=== PATIENT | female | born 1955 | race African-American/Black ===

== ENCOUNTER 2020-09-30 08:13 | Outpatient (CLI) | payer OTHER, SELFPAY ==
--- NOTE | ~2020-09-30 | MM_ITS ---
EXAMINATION: MM screening jacque BI w melanie HISTORY: Screening TECHNIQUE: Craniocaudal and mediolateral oblique 3-D tomosynthesis images were obtained and synthetic 2-D images were generated. CAD analysis was submitted and interpreted. COMPARISON: No prior mammogram is available for comparison at this institution. BREAST PARENCHYMAL COMPOSITION: There are scattered areas of fibroglandular density. FINDINGS: There is an asymmetric approximately 8 x 11 mm opacity in the upper central right breast; d iagnostic right mammogram and right breast ultrasound examination are recommended. Otherwise there is no evidence of suspicious mass, calcification, or architectural distortion to sugg est malignancy in either breast. There has been no other suspicious interval change. Occasional benig n calcifications are noted bilaterally. IMPRESSION: 1. Right upper mid breast asymmetric density 2. Recommend diagnostic right mammogram and right breast ultrasound examination BI-RADS Category 0: Incomplete; need additional imaging evaluation Reviewed, dictated and finalized at location A. S ENAMEL MIXER
== END 2020-09-30 08:14 | disposition home or self-care (01) ==
LOC: ANHIMG 08:16
PROVIDERS: PCP Family Medicine; Visit Provider Family Medicine
DX: Z12.31 Encounter for screening mammogram for malignant neoplasm of breast (principal); R92.8 Other abnormal and inconclusive findings on diagnostic imaging of breast
CPT/HCPCS: 77063; 77067

== ENCOUNTER 2020-10-24 13:03 | Outpatient (CLI) | payer OTHER, SELFPAY ==
--- NOTE | ~2020-10-24 | MMUS_ITS ---
EXAMINATION: MM diagnostic mammo unilat RT, US breast RT complete HISTORY: Right upper mid breast mammographic asymmetric density reported on 09/30/2020 mammogram TECHNIQUE: Additional 3-D tomosynthesis images of the right breast were performed and synthetic 2-D i mages were generated. Rolled medial and rolled lateral craniocaudal views. CAD analysis was submitted and interpreted. High resolution complete right breast ultrasound was performed. COMPARISON: 09/30/2020 bilateral digital screening mammogram FINDINGS: MAMMOGRAPHIC FINDINGS: No definite suspicious reproducible mass lesion is identified. ULTRASOUND: There is a branching linear lucency at 6:00 near the nipple which is likely due to duct. There is no associated shadowing. At 11:00 4 cm from the nipple there is a parallel circumscribed hypoechoic lesion without internal va scularity, with through transmission, measuring approximately 5 x 9 mm. The sonographic features are most consistent with benign process. 6 month diagnostic right mammogram and targeted right breast ult rasound follow-up is recommended. IMPRESSION: 1. Probably benign findings 2. 6 month diagnostic right mammogram and right breast ultrasound follow-up are recommended BI-RADS category 3, probably benign findings. Reviewed, dictated and finalized at location A. IMPRESSION: 1. Probably benign findings 2. 6 month diagnostic right mammogram and right breast ultrasound follow-up are recommended BI-RADS category 3, probably benign findings.
== END 2020-10-24 13:04 | disposition home or self-care (01) ==
LOC: ANHIMG 13:04
PROVIDERS: PCP Family Medicine; Visit Provider Family Medicine
DX: N63.11 Unspecified lump in the right breast, upper outer quadrant (principal); R92.8 Other abnormal and inconclusive findings on diagnostic imaging of breast
CPT/HCPCS: 76641; 77065

== ENCOUNTER → 2021-03-22 11:48 | Outpatient (CLI) | payer SELFPAY ==
--- NOTE | ~2021-03-22 | XR_ITS ---
EXAMINATION: XR chest 2V DATE: 03/22/2021 12:10 INDICATION: Cough TECHNIQUE: PA and lateral views of the chest are obtained. COMPARISON: 03/22/2017 FINDINGS: The lungs are free of acute opacities. There is no pleural effusion or pneumothorax. The ca rdiomediastinal silhouette is normal. There is moderate thoracic spondylosis. IMPRESSION: 1. No acute cardiopulmonary abnormality. Reviewed, dictated and finalized at location A.
== END ==
PROVIDERS: PCP Family Medicine; Visit Provider Physician Assistant
DX: R05 Cough (principal)
CPT/HCPCS: 71046

== ENCOUNTER → 2021-06-26 09:03 | Outpatient (CLI) | payer SELFPAY ==
--- NOTE | ~2021-06-26 | MMUS_ITS ---
EXAMINATION: MM diagnostic jacque RT w melanie, US breast RT limited HISTORY: Follow-up right breast mass TECHNIQUE: Additional 3-D tomosynthesis images of the right breast were performed and synthetic 2-D i mages were generated. CAD analysis was submitted and interpreted. High resolution Limited right breas t ultrasound was performed. COMPARISON: Comparison to multiple prior studies sequentially, with oldest reviewed study dated 11/13. BREAST PARENCHYMAL COMPOSITION: Breast composed of scattered areas of fibroglandular density. FINDINGS: MAMMOGRAPHIC FINDINGS: Stable mass in the upper central aspect of the right breast, middle third which is partially obscured by fibroglandular tissue. No suspicious calcifications or architectural distortion. ULTRASOUND: Limited right breast ultrasound: At 11:00, 4 cm from the nipple, there is an 11 x 9 x 5 mm oval circu mscribed mass with parallel orientation, posterior acoustic enhancement and no internal vascularity. At 6:00 near the areola there is a 7 mm cyst. IMPRESSION: 1. Stable benign-appearing right breast mass. 2. Recommend 6 month follow-up diagnostic bilateral mammogram and limited right breast ultrasound BI-RADS category 3, probably benign findings. Reviewed, dictated and finalized at location A. AR DRIVER IMPRESSION: 1. Stable benign-appearing right breast mass. 2. Recommend 6 month follow-up diagnostic bilateral mammogram and limited right breast ultrasound BI-RADS category 3, probably benign findings.
== END ==
PROVIDERS: PCP Family Medicine; Visit Provider Family Medicine
DX: R92.8 Other abnormal and inconclusive findings on diagnostic imaging of breast (principal); N63.11 Unspecified lump in the right breast, upper outer quadrant; N60.01 Solitary cyst of right breast
CPT/HCPCS: 76642; 77061; 77065; G0279

== ENCOUNTER 2022-12-03 12:35 | Emergency (ER) | payer MEDICARE, MEDICAID, SELFPAY ==
[2022-12-03 12:48] VITALS: BP 129/81; PULSE 64; RESP 16; TEMP 36.6; O2SAT 100
[2022-12-03 12:49] VITALS: BP 129/81; PULSE 64; RESP 16; TEMP 36.6; O2SAT 100
--- NOTE | 2022-12-03 13:32 | ED.FEMALEGU ---
HPI - Female Genitourinary General Chief complaint: Urogenital-Female Stated complaint: pain in abdomen and during urination; frequent uri Time Seen by Provider: 12/03/22 13:25 Source: patient, family, RN notes reviewed and old records reviewed Mode of arrival: ambulatory Limitations: no limitations History of Present Illness HPI Narrative: 67 year old female who presents to [facility] care with complaints of 4 day history of burning with urination and some frequency with some lower abdomen pressure. Patient reports that she has taken some generic AZO for her symptoms with last dose on Saturday.Patient denies any vaginal discharge or any itching,denies any concern for STD exposure. Patient reports no fevers or any nausea.vomiting or diarrhea. MD elicited complaint: UTI Onset (ago): day(s) (4) Location of symptoms: suprapubic Severity scale (1-10): 3 Vaginal discharge: none Related Data Allergies Allergy/AdvReac Type Severity Reaction Status Date / Time No Known Allergies Allergy Verified 12/03/22 12:48 Review of Systems Review of Systems: CONSTITUTIONAL: Denies fever, chills, or sweats. CARDIOVASCULAR: Denies chest pain, palpitations, or edema. RESPIRATORY: Denies cough or dyspnea. GASTROINTESTINAL: Reports suprapubic abdominal pain,no nausea, vomiting, or diarrhea. GENITOURINARY: Reports dysuria, frequency, urgency. Denies flank pain or hematuria. SKIN: Denies rash or itching. MUSCULOSKELETAL: Denies back pain or myalgia. Denies CVA tenderness NEUROLOGIC: Denies headache All systems reviewed & are unremarkable except as noted in HPI and below PMFSH Past Medical History Medical History Benign essential HTN GERD (gastroesophageal reflux disease) Hollenhorst plaque Hyperlipidemia Retinal detachment Family History Family History Mother Diabetes mellitus Hypertension Family history of kidney disease Social History Social History Social History: Smoking status: Never smoker Second hand tobacco smoke exposure: No Alcohol intake: never Substance use: never Substance use type: does not use Living arrangements: with family Occupation/Education: retired Gender identity (if verbalized by the patient): Female Sexual Orientation (if Verbalized by the Patient): Straight or Heterosexual Comments At time of signature, agree with nursing past medical, surgical, social and family history. There is no relevant family history pertinent to the presenting complaint Exam Narrative: GENERAL: Well-appearing, well-nourished, and in no acute distress. HEAD: Normocephalic, atraumatic. NECK: Supple. no lymphadenopathy CHEST: Clear to auscultation. No respiratory distress.SAO2 100% on room air HEART: Regular rate and rhythm. No murmur heard. Normal peripheral pulses. ABDOMEN: Soft, some suprapubic tenderness, nondistended, normal active bowel sounds. No CVA tenderness EXTREMITIES: Normal range of motion. No edema. SKIN: Warm, dry, no rash. NEURO: No focal deficits. Alert and oriented x3. Course Course Emergency Course: Patient is aware of diagnosis, understands and agrees to treatment plan.? Anticipatory guidance given.? Patient agrees to follow-up as directed and is aware of reasons to seek care at the emergency department. Portions of this record may have been created with voice recognition software Level of Care: Express Care Visit Vital Signs Vital signs: Vital Signs Temperature 36.6 C 12/03/22 12:48 Pulse Rate 64 12/03/22 12:48 Respiratory Rate 16 12/03/22 12:48 Blood Pressure 129/81 12/03/22 12:48 Pulse Oximetry 100 12/03/22 12:48 Oxygen Delivery Room Air 12/03/22 12:48 Temperature 36.6 C 12/03/22 12:49 Pulse Rate 64 12/03/22 12:49 Respiratory Rate 16 12/03/22 12:49 Blood Pressure 12
== END 2022-12-03 13:48 | disposition home or self-care (01) ==
PROVIDERS: Emergency Provider Registered Nurse
DX: R10.30 Lower abdominal pain, unspecified (principal); R30.0 Dysuria; R35.0 Frequency of micturition; R39.15 Urgency of urination
CPT/HCPCS: 81003; 87086; 87088; 99213; G0463

== ENCOUNTER 2023-02-06 10:45 | Outpatient (RCR) | payer MEDICARE, MEDICAID, SELFPAY ==
[2022-12-19 13:31] VITALS: BMI 34.7
[2023-01-15 10:45] VITALS: BMI 34.7
[2023-01-15 10:54] VITALS: BMI 34.7
[2023-02-06 10:55] VITALS: BMI 34.2
== END 2023-03-19 23:59 | disposition home or self-care (01) ==
LOC: ANHDMC 10:45
PROVIDERS: Visit Provider Family Medicine
DX: N18.31 Chronic kidney disease, stage 3a (principal); Z71.3 Dietary counseling and surveillance
CPT/HCPCS: 97802; 97803